=== PATIENT | female | born 1955 | race Caucasian/White ===

== ENCOUNTER → 2019-10-02 15:26 | Outpatient (BNVA) | payer BC, SELFPAY | PROVIDERS: Referring Provider Dermatology; Visit Provider Dermatology | DX: L25.5 Unspecified contact dermatitis due to plants, except food (principal); R21 Rash and other nonspecific skin eruption | CPT/HCPCS: 11104; 88112; 88304; 88305; 99203; 99204 ==

== ENCOUNTER → 2019-10-16 14:58 | Outpatient (BNVA) | payer BC, SELFPAY | PROVIDERS: Visit Provider Dermatology | DX: L30.2 Cutaneous autosensitization (principal); Z48.02 Encounter for removal of sutures | CPT/HCPCS: 99213 ==